=== PATIENT | male | born 1960 | race Caucasian/White ===

== ENCOUNTER 2019-06-04 14:38 | Inpatient (IN) | payer OTHER ==
[~2019-06-04] VITALS: Ht 175.3 cm; Wt 78.1 kg
[2019-06-04] MEDS ORDERED: NS 1,000 ML IV ONE ×2 (15:00→16:15)
[2019-06-04 15:21] LABS: VENOUS BASE EXCESS -7.1 (-2.0-2.0); VENOUS HCO3 19.5 MEQ/L (23.0-27.0); VENOUS PARTIAL PRESSURE CO2 42.8 mmHg (38.0-50.0); VENOUS PARTIAL PRESSURE O2 49.6 mmHg (30.0-50.0); VENOUS PH 7.276 UNITS (7.330-7.430); VENOUS STANDARD HCO3 18.4 MEQ/L; VENOUS TOTAL CO2 20.8 MEQ/L (24.0-28.0)
[2019-06-04] MEDS ORDERED: ONDANSETRON 4MG/2ML VIAL (J2405) As Ordered ONE (15:40)
[2019-06-04 15:45] LABS: OSMOLALITY SERUM 312 MOSM/KG (275-295)
[2019-06-04] MEDS ORDERED: ONDANSETRON 4MG/2ML VIAL (J2405) IV ONE (15:45)
--- NOTE | 2019-06-04 15:45 | REP ---
Clinical: Diabetic ketoacidosis . Comparison: None . Findings: The mediastinum and cardiac silhouette are stable and within normal limits for portable technique. The lung sanchez are clear without acute consolidation, effusion, or pneumothorax. Skeletal structures are intact. Impression: No acute cardiopulmonary process appreciated. Electronically Signed by Fernando Haynes MD 06/04/2019 03:37 P
[2019-06-04 15:50] LABS: ACETONE/KETONE > 46.00 MG/DL (<2.81); ALBUMIN 4.2 GM/DL (3.2-5.2); ALT/SGPT 26 U/L (12-78); BILIRUBIN,DIRECT 0.4 MG/DL (0.0-0.2); BILIRUBIN,TOTAL 1.2 MG/DL (0.2-1.0); BLOOD UREA NITROGEN 21 MG/DL (7-18); CALCIUM LEVEL 10.7 MG/DL (8.5-10.1); CARBON DIOXIDE LEVEL 22 MEQ/L (21-32); CHLORIDE LEVEL 93 MEQ/L (98-107); CK-MB VALUE MASS 3.9 NG/ML (<3.6); CPK CREATINE PHOSPHOKINASE 159 U/L (39-308); CREATININE FOR GFR 1.38 MG/DL (0.70-1.30); ETHYL ALCOHOL (ETHANOL) < 0.003 % (0.000-0.010); GLOMERULAR FILTRATION RATE 56.1 (>56); GLUCOSE, FASTING 486 MG/DL (70-100); LIPASE 37 U/L (73-393); MAGNESIUM LEVEL 2.1 MG/DL (1.8-2.4); MB/CK RELATIVE INDEX 2.45 (< OR =4); POTASSIUM SERUM 5.9 MEQ/L (3.5-5.1); SODIUM LEVEL 131 MEQ/L (136-145); TOTAL PROTEIN 7.5 GM/DL (6.4-8.2); TROPONIN I 0.17 NG/ML (< 0.10)
[2019-06-04 15:54] LABS: HEMOGLOBIN A1c 7.9 %
[2019-06-04] MEDS ORDERED: HumaLOG INSULIN (NovoLOG) PER UNIT SC STA (16:39)
[2019-06-04 17:09] LABS: VENOUS BASE EXCESS -9.2 (-2.0-2.0); VENOUS HCO3 17.1 MEQ/L (23.0-27.0); VENOUS O2 SATURATION 77.2 % (60.0-80.0); VENOUS PARTIAL PRESSURE CO2 38.5 mmHg (38.0-50.0); VENOUS PARTIAL PRESSURE O2 46.3 mmHg (30.0-50.0); VENOUS PH 7.265 UNITS (7.330-7.430); VENOUS STANDARD HCO3 16.8 MEQ/L; VENOUS TOTAL CO2 18.3 MEQ/L (24.0-28.0)
[2019-06-04] MEDS ORDERED: ISOVUE-370 76% 100ML VIAL (Q9967) As Ordered ONE (17:35)
[2019-06-04 17:45] LABS: CALCIUM LEVEL 10.2 MG/DL (8.5-10.1); CK-MB VALUE MASS 3.9 NG/ML (<3.6); CREATININE FOR GFR 1.37 MG/DL (0.70-1.30); GLOMERULAR FILTRATION RATE 56.6 (>56); MB/CK RELATIVE INDEX 2.45 (< OR =4); POTASSIUM SERUM 6.1 MEQ/L (3.5-5.1); TROPONIN I 0.16 NG/ML (< 0.10)
[2019-06-04] MEDS ORDERED: INSULIN IV RATE CHANGE DOCUMENTATION ML/HR XX SCH ×2 (18:30→23:45)
[2019-06-04] MEDS ORDERED: INSULIN HUMAN REGULAR 100 UNITS in NS 99 ML IV SCH ×2 (18:30→23:45)
[2019-06-04 18:40] LABS: BASO # 0.1 10^3/uL (0.0-0.2); BASO % 0.3 % (0.0-1.0); HEMATOCRIT 43.3 % (42.0-52.0); HEMOGLOBIN 14.6 g/dl (13.5-17.5); LYMPH # 0.4 10^3/uL (1.5-5.0); LYMPH % 2.8 % (24.0-44.0); MEAN CORPUSCULAR HGB CONC 33.7 g/dl (32.0-36.5); MEAN CORPUSCULAR VOLUME 85.9 fl (80.0-96.0); MONO # 0.4 10^3/uL (0.0-0.8); MONO % 2.4 % (0.0-5.0); NEUTROPHILS # 13.8 10^3/uL (1.5-8.5); NEUTROPHILS % 94.2 % (36.0-66.0); PLATELET COUNT, AUTOMATED 295 10^3/uL (150-450); RED BLOOD COUNT 5.04 10^6/uL (4.30-6.10); WHITE BLOOD COUNT 14.7 10^3/uL (4.0-10.0)
--- NOTE | 2019-06-04 18:54 | REPVR ---
EXAM: CT Angiography Chest With Contrast EXAM DATE/TIME: 06/04/2019 5:49 PM CLINICAL HISTORY: 59 years old, male; Chest pain; Additional info: Chest pain/ elevated troponin TECHNIQUE: Imaging protocol: Computed tomographic angiography of the chest with intravenous contrast. 3D rendering: MIP reconstructed images were created and reviewed. Radiation optimization: All CT scans at this facility use at least one of these dose optimization techniques: automated exposure control; mA and/or kV adjustment per patient size (includes targeted exams where dose is matched to clinical indication); or iterative reconstruction. Contrast material: ISOVUE 370; Contrast volume: 100 ml; Contrast route: IV; COMPARISON: CR PORTABLE CHEST X-RAY 06/04/2019 3:14 PM FINDINGS: Pulmonary arteries: There are very small pulmonary emboli on the left within infrahilar pulmonary arteries. There is mild atelectasis and infiltrate at the left lung base and just distal to the area of small emboli. This is probably related to small emboli. The lungs are otherwise clear. Aorta: Unremarkable. No aortic aneurysm. No aortic dissection. Thyroid: Normal thyroid. Pleural space: There is no evidence of pneumothorax or pleural effusion. Heart: The heart is normal in size and there is no evidence of pericardial effusion. Mediastinum: The small hiatal hernia. Liver: Normal liver. Lymph nodes: Unremarkable. No enlarged lymph nodes. Bones/joints: There are bridging anterior osteophytes of the thoracic spine. Soft tissues: Unremarkable. Other findings: Sternal wires are present. IMPRESSION: 1. Small pulmonary emboli in 2 of the infrahilar pulmonary arteries and associated with a small area of atelectasis infiltrate. 2. Small hiatal hernia. Electronically signed by: Micha Alfaro On 06/04/2019 18:54:20 PM
--- NOTE | 2019-06-04 19:04 | REPVR ---
EXAM: CT Abdomen and Pelvis With Contrast EXAM DATE/TIME: 06/04/2019 5:49 PM CLINICAL HISTORY: 59 years old, male; Vomiting TECHNIQUE: Imaging protocol: Computed tomography of the abdomen and pelvis with intravenous contrast. Radiation optimization: All CT scans at this facility use at least one of these dose optimization techniques: automated exposure control; mA and/or kV adjustment per patient size (includes targeted exams where dose is matched to clinical indication); or iterative reconstruction. Contrast material: ISOVUE 370; Contrast volume: 100 ml; Contrast route: IV; COMPARISON: No relevant prior studies available. FINDINGS: Mediastinum: Small hiatal hernia. Liver: There is severe fatty infiltration of the liver. Gallbladder and bile ducts: Normal gallbladder. Normal common bile duct. Pancreas: Normal appearing pancreas. Spleen: Normal spleen. Adrenals: Normal. No mass. Kidneys and ureters: There is enhancement of the kidneys. Stomach and bowel: Unremarkable. No obstruction. No mucosal thickening. Appendix: Normal-appearing appendix. Intraperitoneal space: There is no evidence of free fluid in the abdomen or pelvis. Vasculature: There is opacification of the aorta and appearing normal in size and intact. There is prominent calcification of the aorta consistent with atherosclerotic change. There is calcification of the celiac artery consistent with atherosclerotic change. There is opacification of the renal arteries. Lymph nodes: Unremarkable. No enlarged lymph nodes. Bladder: There is moderate distention of the urinary bladder. Reproductive: A normal sized prostate. Bones/joints: There is moderate posterior disc protrusion L4-L5 and L5-S1. Soft tissues: Unremarkable. IMPRESSION: 1. Moderate fatty infiltration of the liver. 2. Severe atherosclerotic change with calcification of the aorta and iliac arteries. 3. Small hiatal hernia. 4. Moderate distention of urinary bladder. Electronically signed by: Micha Alfaro On 06/04/2019 19:04:13 PM
[2019-06-04 20:40] LABS: INR 1.07; PROTHROMBIN TIME 13.6 SECONDS (11.8-14.0)
[2019-06-04 20:41] LABS: PARTIAL THROMBOPLASTIN TIME 29.2 SECONDS (25.0-38.4)
[2019-06-04] MEDS ORDERED: NS 1,000 ML IV SCH (21:00)
[2019-06-04] MEDS ORDERED: ESCITALOPRAM OXALATE 10 MG TAB (LEXAPRO) PO SCH (21:00)
[2019-06-04] MEDS ORDERED: ACETAMINOPHEN TAB 650MG DOSE (2X325MG) PO PRN (21:00)
[2019-06-04] MEDS ORDERED: ATORVASTATIN 20 MG TAB PO SCH (21:00)
[2019-06-04] MEDS ORDERED: ONDANSETRON 4MG/2ML VIAL (J2405) IV PRN (21:00)
[2019-06-04] MEDS ORDERED: APIXABAN 5 MG TAB (ELIQUIS) PO SCH (21:00)
[2019-06-04] MEDS ORDERED: OXcarbazepine 150 MG TAB PO SCH (21:00)
[2019-06-04] MEDS ORDERED: OXCA150T21 PO (21:01)
[2019-06-04] MEDS ORDERED: LISI-542 PO (21:01)
[2019-06-04] MEDS ORDERED: METO1TAB32 PO (21:01)
[2019-06-04] MEDS ORDERED: ASPI-161 PO (21:01)
[2019-06-04] MEDS ORDERED: INSUHUMDS SC (21:01)
[2019-06-04] MEDS ORDERED: ESCI20TA PO (21:01)
[2019-06-04] MEDS ORDERED: ATOR80TA59 PO (21:01)
--- NOTE | 2019-06-04 21:56 | HPEPDOC ---
[facility] Medical History & Physical Date of Admission Jun 04, 2019 Date of Service: Jun 04, 2019 Other Provider PCP is in [place] Attending Physician: LIZZIE GARCIA MD History and Physical PRIMARY CARE PROVIDER: In [place] ATTENDING: Dr. Lizzie Garcia CHIEF COMPLAINT: nausea/vomiting HISTORY OF PRESENT ILLNESS: Patient is a 59 year old male presenting with chief complaint of nausea/vomiting. Patient is a former [place] resident who occasionally comes up to visit family and arrived from [place] on 05/24. He states he had 4-5 episodes of emesis last night (06/03) after drinking too much alcohol. The nausea and vomiting continued this morning as he was unable to hold down any oral intake. Also sometime this morning he noted some intermittent right-sided chest pain that felt like heartburn. Because of his inability to tolerate oral intake he presented the [facility] emergency department where he was found to be in DKA. His history of chest pain was investigated as well and a CTA chest was performed showing 2 small pulmonary emboli. 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 It is uncl ear whether or not the patient understands how to attend to his diabetes when the self monitoring pump is removed (and it was since it had no salesperson flying squad). PAST MEDICAL HISTORY: Type 1 diabetes since age 15 Hyperlipidemia Depression MA in 2014 PAST SURGICAL HISTORY: Quadruple bypass in 2014 Finger surgery with metal sophia placement in early 20s SOCIAL HISTORY: Previous smoker of cigars who quit 3 years ago used to smoke one per day, generally drinks 2 cans of beer on weekends but does have episodes of binge drinking from time to time, no illicit drugs including marijuana, heroin, cocaine, PCP. Lives at home in [place] with his . Retired CPA. One dog in the home. FAMILY HISTORY: Fatheralive history of colorectal cancer with colostomy placement Mother from complications secondary to peripheral artery disease One sibling from suicide due to depression Other siblings with no health problems ALLERGIES: Please see below. REVIEW OF SYSTEMS: GENERAL: Denies fevers, chills, recent unexpected weight change, night sweats, hemoptysis HEENT: Denies headache, dizziness, vision changes, hearing loss, sore throat CARDIOVASCULAR: Denies palpitations, orthopnea. Admits to chest pain as per HPI. RESPIRATORY: Denies shortness of breath, wheezing, cough GASTROINTESTINAL: denies abdominal pain, constipation, diarrhea, bloody stool. Admits to nausea, vomiting as per HPI GENITOURINARY: Denies dysuria,urinary urgency, hematuria. MUSCULOSKELETAL: Denies muscle/joint pain, weakness, stiffness NEUROLOGICAL: Denies any numbness/tingling, focal weakness, or syncope HOME MEDICATIONS: Please see below. PHYSICAL EXAMINATION: Vitals: (see below) General: No acute distress, laying comfortably in bed. HEENT: Normocephalic, atraumatic. EOMI. No scleral icterus. Dry mucous membranes with blackened stain on his tongue. No pharyngeal erythema or uvular deviation. Neck: No JVD, lymphadenopathy, or thyromegaly. Cardiac: Tachycardia on auscultation, Normal S1 and S2, No murmurs, gallops, rubs. Pulm: Clear to auscultation b/l. Symmetric thorax. No wheezing, crackles, r honchi Abd: Bowel Sounds present. Abdomen is soft, non-tender, non-distended. No guarding, rebound tenderness, or rigidity. No hepatosplenomegaly. No masses or eccymosis. Ext: No edema or cyanosis Neuro: Alert and oriented, Strength +5/5 BUE and BLE. CN 3-12 grossly intact. LABORATORY DATA: See below. IMAGIN06/04/19 chest x-ray: No acute cardiopulmonary process appreciated. 06/04/19 abdomen/pelvis CT: 1. Moderate fatty infiltration of the liver. 2. Severe atherosclerotic change with calcification of the aorta and iliac arteries. 3. Small hiatal hernia. 4. Moderate distention of urinary bladder. 06/04/[address]: 1. Small pulmonary emboli in 2 of the infrahilar pulmonary arteries and associated with a small area of atelectasis infiltrate. 2. Small hiatal hernia. MICROBIOLOGY: Please see below. ASSESSMENT/PLAN: #. Diabetic ketoacidosis -Most likely cause of his DKA is secondary to his alcohol intoxication as well as his difficulties using his insulin pump, the lack of charge her for it, or possibly a malfunction with his insulin pump. This will need to be looked into by the day team to ensure that it is functioning properly as his primary care provider is not present in [place]. -In the emergency department he was given a bolus of insulin and started at a rate of 10 units per hour. He received 2 NS fluid boluses as part of his resuscitation as well. After I saw the patient, the nurse informed me that his latest fingerstick was 250 so we lowered the rate down to 2 units per hour. We will continue to do every hour fingersticks and monitor his electrolytes and anion gap every 4 hours. Once his glucose drops below 200 we will start the patient on D5 normal saline and once his gap closes after an hour we will transition him to subcutaneous insulin. -Patient on pantoprazole for GI prophylaxis, and getting zofran q4 hours for nausea. #. Hyperkalemia - Likely secondary to DKA, will continue to monitor for elevations with Q4 hour BMP's and correct with insulin. - Will hold home Lisinopril for now #. Pulmonary embolism -This may have been an incidental finding since they're relatively small clots in the periphery of his lungs. He does have a travel history or he was sitting for more than 2 hours on a flight, but right now this would appear to be unprovoked. We will get bilateral ultrasounds of his legs to make sure he didn't throw clot from them. -Starting patient on eliquis 10 mg twice daily for 7 days. #. Elevated creatinine -Likely secondary to dehydration and acidosis from DKA, will continue to give fluids and monitor for changes. - Holding nephrotoxic agents (lisinopril) #. Lactic Acidosis -Likely secondary to DKA, will continue to give IV fluid. So far initial work up is not showing anything concerning for infection. #. Leukocytosis - Likely reactive to acidosis and alcohol intoxication. #. Elevated troponin - Initial troponin elevated at 0.17 #. History of quadruple bypass -Continue lisinopril, metoprolol, baby aspirin, atorvastatin #. Depression -Continue escitalopram #. History of epilepsy -Continue oxcarbazepine #. Hyperlipidemia -Continue home atorvastatin -DVT prophy: Teds, eliquis, aspirin Vital Signs Vital Signs Date Time Temp Pulse Resp B/P (MAP) Pulse Ox O2 Delivery O2 Flow Rate FiO2 06/04/19 20:30 99.6 100 20 147/63 (91) 93 Room Air Laboratory Data Labs 24H Laboratory Tests 2 06/04/19 15:07: Immature Granulocyte % (Auto) 0.3, White Blood Count 14.7H, Red Blood Count 5.04, Hemoglobin 14.6, Hematocrit 43.3, Mean Corpuscular Volume 85.9, Mean Corpuscular Hemoglobin 29.0, Mean Corpuscular Hemoglobin Concent 33.7, Red Cell Distribution Width 13.8, Platelet Count 295, Neutrophils (%) (Auto) 94.2H, Lymphocytes (%) (Auto) 2.8L, Monocytes (%) (Auto) 2.4, Eosinophils (%) (Auto) 0.0, Basophils (%) (Auto) 0.3, Neutrophils # (Auto) 13.8H, Lymphocytes # (Auto) 0.4L, Monocytes # (Auto) 0.4, Eosinophils # (Auto) 0.0, Basophils # (Auto) 0.1, Nucleated Red Blood Cells % (auto) 0.0, Blood Gas Bicarbonate Standard 18.4, Venous Blood pH 7.276L, Venous Blood Partial Pressure CO2 42.8, Venous Blood Partial Pressure O2 49.6, Venous Blood Total Carbon Dioxide 20.8L, Venous Blood HCO3 19.5L, Venous Blood Oxygen Saturation 80.0, Venous Blood Base Excess -7.1L, Anion Gap 16, Glomerular Filtration Rate 56.1, Estimated Mean Plasma Glucose 180H, Hemoglobin A1c 7.9, Osmolality 312H, Lactic Acid Level 3.7*H, Calcium Level 10.7H, Magnesium Level 2.1, Aspartate Amino Transf (AST/SGOT) 19, Alanine Aminotransferase (ALT/SGPT) 26, Alkaline Phosphatase 88, Total Bilirubin 1.2H, Direct Bilirubin 0.4H, Total Creatine Kinase 159, Creatine Kinase MB 3.9H, Creatine Kinase MB Relative Index 2.45, Troponin I 0.17H, Total Protein 7.5, Albumin 4.2, Albumin/Globulin Ratio 1.27, Lipase 37L, Ethyl Alcohol Level < 0.003, B-Hydroxybutyrate > 46.00H 06/04/19 15:17: Bedside Glucose (Misc Panel) 497H 06/04/19 16:18: Bedside Glucose (Misc Panel) 501*H 06/04/19 16:20: Urine Color STRAW, Urine Appearance CLEAR, Urine pH 5.0, Urine Specific [place] 1.023, Urine Protein NEGATIVE, Urine Glucose (UA) 3+H, Urine Ketones 2+H, Urine Blood 1+H, Urine Nitrite NEGATIVE, Urine Bilirubin NEGATIVE, Urine Urobilinogen 0.2, Urine Leukocyte Esterase NEGATIVE, Urine WBC (Auto) 0, Urine RBC (Auto) 1, Urine Hyaline Casts (Auto) 0, Urine Bacteria (Auto) NEGATIVE, Urine Squamous Epithelial Cells 0, Urine Sperm (Auto) 06/04/19 17:03: Blood Gas Bicarbonate Standard 16.8, Venous Blood pH 7.265L, Venous Blood Partial Pressure CO2 38.5, Venous Blood Partial Pressure O2 46.3, Venous Blood Total Carbon Dioxide 18.3L, Venous Blood HCO3 17.1L, Venous Blood Oxygen Saturation 77.2, Venous Blood Base Excess -9.2L, Anion Gap 16, Glomerular Filtration Rate 56.6, Blood Urea Nitrogen 24H, Creatinine 1.37H, Sodium Level 132L, Potassium Level 6.1*H, Chloride Level 96L, Carbon Dioxide Level 20L, Calcium Level 10.2H, Total Creatine Kinase 159, Creatine Kinase MB 3.9H, Creatine Kinase MB Relative Index 2.45, Troponin I 0.16H 06/04/19 18:11: Bedside Glucose (Misc Panel) 423H 06/04/19 19:32: Bedside Glucose (Misc Panel) 308H 06/04/19 19:40: Lactic Acid Followup at 4 Hours 3.2*H 06/04/19 20:20: Prothrombin Time 13.6, Prothromb Time International Ratio 1.07, Activated Partial Thromboplast Time 29.2 06/04/19 20:42: Bedside Glucose (Misc Panel) 250H CBC/BMP Laboratory Tests 06/04/19 15:07 Red Blood Count 5.04, Mean Corpuscular Volume 85.9, Mean Corpuscular Hemoglobin 29.0, Mean Corpuscular Hemoglobin Concent 33.7, Red Cell Distribution Width 13.8, Neutrophils (%) (Auto) 94.2 H, Lymphocytes (%) (Auto) 2.8 L, Monocytes (%) (Auto) 2.4, Eosinophils (%) (Auto) 0.0, Basophils (%) (Auto) 0.3, Neutrophils # (Auto) 13.8 H, Lymphocytes # (Auto) 0.4 L, Monocytes # (Auto) 0.4, Eosinophils # (Auto) 0.0, Basophils # (Auto) 0.1 06/04/19 17:03 Calcium Level 10.2 H, Total Creatine Kinase 159 Home Medications Scheduled Aspirin (Aspirin EC) 81 Mg Tablet.dr, 81 MG PO DAILY Atorvastatin Calcium (Atorvastatin Calcium) 80 Mg Tablet, 80 MG PO QHS Clopidogrel Bisulfate (Plavix) 75 Mg Tablet, 1 TAB PO DAILY Enoxaparin Sodium (Lovenox) 80 Mg/0.8 Ml Syringe, 80 MG SC Q12H Escitalopram Oxalate (Escitalopram Oxalate) 20 Mg Tablet, 20 MG PO QHS Insulin Human Lispro (Humalog) 100 Unit/1 Ml Vial, 1 DOSE SC ASDIRECTED UP TO 50 UNITS DAILY VIA INSULIN PUMP Lisinopril (Lisinopril) 5 Mg Tablet, 5 MG PO DAILY Metoprolol Succinate (Metoprolol Succinate) 25 Mg Tab.er.24h, 25 MG PO DAILY Oxcarbazepine (Oxcarbazepine) 150 Mg Tablet, 150 MG PO BID Allergies Coded Allergies: No Known Drug Allergies (Verified Allergy, Unknown, 06/04/19) A-FIB/CHADSVASC A-FIB History Current/History of A-Fib/PAF?: No GME ATTESTATION GME ATTESTATION My faculty preceptor for this patient encounter was physically present during the encounter and was fully available. All aspects of the patient interview, examination, medical decision making process, and medical care plan development were reviewed and approved by the faculty preceptor. The faculty preceptor is aware and concurs with the plan as stated in the body of this note and will attest to such by his/her cosignature. JASKARAN PETE DO Jun 04, 2019 21:56
[2019-06-04] MEDS ORDERED: D5W/0.9% SODIUM CHLORIDE 1,000 ML IV SCH ×2 (22:00→23:45)
[2019-06-04 22:32] LABS: CK-MB VALUE MASS 6.9 NG/ML (<3.6); MB/CK RELATIVE INDEX 3.08 (< OR =4); TROPONIN I 0.68 NG/ML (< 0.10)
--- NOTE | 2019-06-04 22:51 | REPVR ---
EXAM: US Duplex Bilateral Lower Extremity Veins EXAM DATE/TIME: 06/04/2019 10:44 PM CLINICAL HISTORY: 59 years old, male; Abnormal findings; Abnormal imaging study of limbs; Chest; CT; Additional info: Pe in lungs TECHNIQUE: Imaging protocol: Real-time duplex ultrasound of the Bilateral Lower Extremities with 2-D carrera scale, color Doppler flow and spectral waveform analysis with image documentation. Complete exam focused on the bilateral lower extremity veins. COMPARISON: No relevant prior studies available. FINDINGS: Right deep veins: Unremarkable. The common femoral, femoral, proximal profunda femoral and popliteal veins are patent without thrombus. Normal Doppler waveforms. Normal compressibility and/or augmentation response. Right superficial veins: Saphenofemoral junction is patent without thrombus. Left deep veins: Unremarkable. The common femoral, femoral, proximal profunda femoral and popliteal veins are patent without thrombus. Normal Doppler waveforms. Normal compressibility and/or augmentation response. Left superficial veins: Saphenofemoral junction is patent without thrombus. Soft tissues: Unremarkable. IMPRESSION: No acute findings. No evidence of deep vein thrombosis. Electronically signed by: Micha Alfaro On 06/04/2019 22:51:23 PM
[2019-06-04 23:20] VITALS: BP 147/62
[2019-06-04 23:24] VITALS: BP 135/58
[2019-06-04 23:44] LABS: CREATININE FOR GFR 1.38 MG/DL (0.70-1.30); GLOMERULAR FILTRATION RATE 56.1 (>56); POTASSIUM SERUM 4.6 MEQ/L (3.5-5.1)
[2019-06-05] VITALS (7 sets, daily range): BP systolic 107–125; BP diastolic 52–60
--- NOTE | 2019-06-05 00:48 | ECGEPIP ---
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
--- NOTE | 2019-06-05 00:50 | ECGEPIP ---
[facility] - ED Test Date: 2019-06-04 Pat Name: ELLY MALONEY Department: Room: - Gender: Male Camp Head Counselor: sara : 1960 Requested By: MARCOS Echevarria Order Number: [id number] Reading MD: Marcos Conti Measurements Intervals [place] Rate: 101 P: 82 DE: 136 QRS: 85 QRSD: 94 T: 50 QT: 334 QTc: 433 Interpretive Statements SINUS TACHYCARDIA Nonspecific ST-T wave abnormalities Similar to tracing done 06-04-19 at 1454 Electronically Signed on 06-05-2019 0:50:16 EDT by Marcos Conti
[2019-06-05 01:44] LABS: CALCIUM LEVEL 8.8 MG/DL (8.5-10.1); CREATININE FOR GFR 1.31 MG/DL (0.70-1.30); GLOMERULAR FILTRATION RATE 59.6 (>56); POTASSIUM SERUM 4.7 MEQ/L (3.5-5.1)
[2019-06-05 02:51] LABS: CK-MB VALUE MASS 8.5 NG/ML (<3.6); MB/CK RELATIVE INDEX 3.08 (< OR =4); TROPONIN I 1.68 NG/ML (< 0.10)
[2019-06-05] MEDS ORDERED: CLOPIDOGREL 300 MG TAB (PLAVIX) PO STA (03:23)
[2019-06-05] MEDS ORDERED: DEXTROSE 50% 50 ML SYRINGE IV PRN (03:45)
[2019-06-05] MEDS ORDERED: NS 1,000 ML IV SCH (03:45)
[2019-06-05] MEDS ORDERED: GLUCAGON FOR INJ 1 MG VIAL (J1610) SC PRN (03:45)
[2019-06-05] MEDS ORDERED: GLUCOSE 4 GM CHEW TABLET PO PRN (03:45)
[2019-06-05] MEDS ORDERED: LEVEMIR (INSULIN DETEMIR) 1 UNITS/0.01ML SC ONE ×2 (03:45→04:30)
[2019-06-05] MEDS ORDERED: ASPIRIN 81 MG CHEW TABLET PO ONE (04:00)
[2019-06-05] MEDS ORDERED: LOVE0.6I2 SC (04:22)
[2019-06-05] MEDS ORDERED: PLAV1TAB2 PO (04:22)
--- NOTE | 2019-06-05 04:55 | DS.PDOC ---
Discharge Summary General Date of Admission Jun 04, 2019 at 20:12 Date of Discharge 06/05/19 Attending Physician: PIYUSH BRYANT MD Specialist/Consultants Involve: Marcos Warren Discharge Summary PROCEDURES PERFORMED DURING STAY: None. ADMITTING DIAGNOSES: Diabetic Ketoacidosis Pulmonary emboli Type 1 diabetes Depression Hyperlipidemia History of quadruple bypass in 2014 DISCHARGE DIAGNOSES: NSTEMI DKAresolved Pulmonary emboli Type 1 diabetes Depression Hyperlipidemia History of quadruple bypass in 2014 COMPLICATIONS/CHIEF COMPLAINT: Dka Pulmonary Embolism. HISTORY OF PRESENT ILLNESS: Patient is a 59 year old male presenting with chief complaint of nausea/vomiting. Patient is a former [place] resident who occasionally comes up to visit family and arrived from [place] on 05/24. He states he had 4-5 episodes of emesis last night (06/03) after drinking too much alcohol. The nausea and vomiting continued this morning as he was unable to hold down any oral intake. Also sometime this morning, he noted some intermittent right-sided chest pain that felt like heartburn. Because of his inability to tolerate oral intake he presented the [facility] emergency department where he was found to be in DKA. His history of chest pain was investigated as well and a CTA chest was performed showing 2 small infrahilar pulmonary emboli. Outside of his history of alcohol intoxication, he also states that he has a new device pump for his diabetes and that he left the communication signals intelligence for this in [place] and was only administering 1 unit of insulin based on self performed fingersticks. It is unclear whether or not the patient understands how to attend to his diabetes when the self monitoring pump is removed (and it was since it had no communication signals intelligence). HOSPITAL COURSE: Patient's DKA was not especially severe and his anion gap was closed by 21:47 on 06/04. He was having glucose readings below 200 regularly by about midnight at which time D5 normal saline was started. After an hour running the D5 normal saline with the insulin at the same rate, we transition to subcutaneous insulin and gave the patient 20 units of Levemir. Patient tolerated this well and experienced no nausea, vomiting or any complications outside of the elevated troponins. For his pulmonary emboli, he was given 10 mg of eliquis at 2308. While in the emergency department, he had troponins drawn at 1507 and at 1703 showing elevations of 0.17 and 0.16 respectively. EKGs performed at both of those times showed sinus tachycardia with no ST elevations or depressions. A six-hour follow-up at 2147 showed a troponin elevation of 0.68 and another performed 3 hours later demonstrated a troponin of 1.68. At that time and went down to the ICU and obtain a stat EKG that showed T-wave flattening in V2-V4 with no ST elevations or depressions. Our on-call electric furnace operator was then reached, Dr. Rea, who advised me that the patient would need a transfer for cardiac catheterization and in the meantime to start the patient on Plavix 300 mg followed by 75 mg daily. We also stopped the eliquis and started the patient on Lovenox 1 mg/kg and had the patient take a single 325 mg chewable aspirin. I spoke with Dr. Denton from [facility] who agreed to accept our transfer. The patient was kept informed throughout this entire process including during the most recent EKG, of the fact his troponins were elevated, that I was seeking cardiology consultation, and that he was being transferred for cardiac honorio terization. The patient verbalized understanding and agreement with the plan moving forward and had no questions. DISCHARGE MEDICATIONS: Please see below. ALLERGIES: Please see below. PHYSICAL EXAMINATION ON DISCHARGE: VITAL SIGNS: Please see below. GENERAL: Alert, in no acute distress, laying comfortably in bed HEENT: Normocephalic, atraumatic. EOMI. Mucous membranes moist. NECK: No JVD, lymphadenopathy, neck swelling. CARDIOVASCULAR EXAMINATION: RRR. Normal S1 and S2. No murmurs, gallops, rubs appreciated on auscultation. RESPIRATORY EXAMINATION: CTAB with full breath sounds bilaterally. No wheezes, crackles, rhonchi. ABDOMINAL EXAMINATION: Soft, nontender, nondistended. Bowel sounds present EXTREMITIES: No edema or cyanosis. SKIN: No rashes, skin mottling or skin changes appreciated. NEUROLOGICAL EXAMINATION: Alert, oriented. Cranial nerves 3-12 grossly intact. PSYCHIATRIC EXAMINATION: Mildly anxious. LABORATORY DATA: Please see below. IMAGIN06/04/19 chest x-ray: No acute cardiopulmonary process appreciated. 06/04/19 abdomen/pelvis CT: 1. Moderate fatty infiltration of the liver. 2. Severe atherosclerotic change with calcification of the aorta and iliac arteries. 3. Small hiatal hernia. 4. Moderate distention of urinary bladder. 06/04/[address]: 1. Small pulmonary emboli in 2 of the infrahilar pulmonary arteries and associated with a small area of atelectasis infiltrate. 2. Small hiatal hernia. PROGNOSIS: Fair ACTIVITY: [As tolerated]. DIET: Consistent carbohydrates DISCHARGE PLAN: Transfer to [facility] for cardiac catheterization DISCHARGE INSTRUCTIONS: 1. Transfer for cardiac catheterization 2. Make sure insulin pump is working correctly, may need to call hitch technician DISCHARGE CONDITION: [Stable]. TIME SPENT ON DISCHARGE: Greater than 30 minutes. Vital Signs/I&Os Vital Signs Date Time Temp Pulse Resp B/P (MAP) Pulse Ox O2 Delivery O2 Flow Rate FiO2 06/05/19 03:00 78 16 122/60 (80) 98 06/05/19 00:00 99.0 06/04/19 23:07 Room Air I&O- Last 24 Hours up to 6 AM 06/05/19 06:00 Intake Total 2020.2 ml Output Total 1000 ml Balance 1020.2 ml Laboratory Data Labs 24H Laboratory Tests 2 06/04/19 15:07: Immature Granulocyte % (Auto) 0.3, White Blood Count 14.7H, Red Blood Count 5.04, Hemoglobin 14.6, Hematocrit 43.3, Mean Corpuscular Volume 85.9, Mean Corpuscular Hemoglobin 29.0, Mean Corpuscular Hemoglobin Concent 33.7, Red Cell Distribution Width 13.8, Platelet Count 295, Neutrophils (%) (Auto) 94.2H, Lymphocytes (%) (Auto) 2.8L, Monocytes (%) (Auto) 2.4, Eosinophils (%) (Auto) 0.0, Basophils (%) (Auto) 0.3, Neutrophils # (Auto) 13.8H, Lymphocytes # (Auto) 0.4L, Monocytes # (Auto) 0.4, Eosinophils # (Auto) 0.0, Basophils # (Auto) 0.1, Nucleated Red Blood Cells % (auto) 0.0, Blood Gas Bicarbonate Standard 18.4, Venous Blood pH 7.276L, Venous Blood Partial Pressure CO2 42.8, Venous Blood Partial Pressure O2 49.6, Venous Blood Total Carbon Dioxide 20.8L, Venous Blood HCO3 19.5L, Venous Blood Oxygen Saturation 80.0, Venous Blood Base Excess -7.1L, Anion Gap 16, Glomerular Filtration Rate 56.1, Estimated Mean Plasma Glucose 180H, Hemoglobin A1c 7.9, Osmolality 312H, Lactic Acid Level 3.7*H, Calcium Level 10.7H, Magnesium Level 2.1, Aspartate Amino Transf (AST/SGOT) 19, Alanine Aminotransferase (ALT/SGPT) 26, Alkaline Phosphatase 88, Total Bilirubin 1.2H, Direct Bilirubin 0.4H, Total Creatine Kinase 159, Creatine Kinase MB 3.9H, Creatine Kinase MB Relative Index 2.45, Troponin I 0.17H, Total Protein 7.5, Albumin 4.2, Albumin/Globulin Ratio 1.27, Lipase 37L, Ethyl Alcohol Level < 0.003, B-Hydroxybutyrate > 46.00H 06/04/19 15:17: Bedside Glucose (Misc Panel) 497H 06/04/19 16:18: Bedside Glucose (Misc Panel) 501*H 06/04/19 16:20: Urine Color STRAW, Urine Appearance CLEAR, Urine pH 5.0, Urine Specific [place] 1.023, Urine Protein NEGATIVE, Urine Glucose (UA) 3+H, Urine Ketones 2+H, Urine Blood 1+H, Urine Nitrite NEGATIVE, Urine Bilirubin NEGATIVE, Urine Urobilinogen 0.2, Urine Leukocyte Esterase NEGATIVE, Urine WBC (Auto) 0, Urine RBC (Auto) 1, Urine Hyaline Casts (Auto) 0, Urine Bacteria (Auto) NEGATIVE, Urine Squamous Epithelial Cells 0, Urine Sperm (Auto) 06/04/19 17:03: Blood Gas Bicarbonate Standard 16.8, Venous Blood pH 7.265L, Venous Blood Partial Pressure CO2 38.5, Venous Blood Partial Pressure O2 46.3, Venous Blood Total Carbon Dioxide 18.3L, Venous Blood HCO3 17.1L, Venous Blood Oxygen Saturation 77.2, Venous Blood Base Excess -9.2L, Anion Gap 16, Glomerular Filtration Rate 56.6, Blood Urea Nitrogen 24H, Creatinine 1.37H, Sodium Level 132L, Potassium Level 6.1*H, Chloride Level 96L, Carbon Dioxide Level 20L, Calcium Level 10.2H, Total Creatine Kinase 159, Creatine Kinase MB 3.9H, Creatine Kinase MB Relative Index 2.45, Troponin I 0.16H 06/04/19 18:11: Bedside Glucose (Misc Panel) 423H 06/04/19 19:32: Bedside Glucose (Misc Panel) 308H 06/04/19 19:40: Lactic Acid Followup at 4 Hours 3.2*H 06/04/19 20:20: Prothrombin Time 13.6, Prothromb Time International Ratio 1.07, Activated Partial Thromboplast Time 29.2 06/04/19 20:42: Bedside Glucose (Misc Panel) 250H 06/04/19 21:46: Bedside Glucose (Misc Panel) 209H 06/04/19 21:47: Anion Gap 7L, Glomerular Filtration Rate 56.1, Blood Urea Nitrogen 24H, Creatinine 1.38H, Sodium Level 139#, Potassium Level 4.6#, Chloride Level 107, Carbon Dioxide Level 25, Calcium Level 9.0, Total Creatine Kinase 224, Creatine Kinase MB 6.9H, Creatine Kinase MB Relative Index 3.08, Troponin I 0.68#H 06/04/19 22:44: Bedside Glucose (Misc Panel) 215H 06/04/19 23:23: Bedside Glucose (Misc Panel) 195H 06/05/19 00:22: Bedside Glucose (Misc Panel) 195H 06/05/19 01:09: Anion Gap 6L, Glomerular Filtration Rate 59.6, Blood Urea Nitrogen 22H, Creatinine 1.31H, Sodium Level 139, Potassium Level 4.7, Chloride Level 106, Carbon Dioxide Level 27, Calcium Level 8.8, Total Creatine Kinase 276, Creatine Kinase MB 8.5H, Creatine Kinase MB Relative Index 3.08, Troponin I 1.68#*H 06/05/19 01:46: Bedside Glucose (Misc Panel) 198H 06/05/19 03:07: Bedside Glucose (Misc Panel) 177H CBC/BMP Laboratory Tests 06/04/19 15:07 Red Blood Count 5.04, Mean Corpuscular Volume 85.9, Mean Corpuscular Hemoglobin 29.0, Mean Corpuscular Hemoglobin Concent 33.7, Red Cell Distribution Width 13.8, Neutrophils (%) (Auto) 94.2 H, Lymphocytes (%) (Auto) 2.8 L, Monocytes (%) (Auto) 2.4, Eosinophils (%) (Auto) 0.0, Basophils (%) (Auto) 0.3, Neutrophils # (Auto) 13.8 H, Lymphocytes # (Auto) 0.4 L, Monocytes # (Auto) 0.4, Eosinophils # (Auto) 0.0, Basophils # (Auto) 0.1 06/04/19 17:03 Calcium Level 10.2 H, Total Creatine Kinase 159 06/04/19 21:47 Calcium Level 9.0, Total Creatine Kinase 224 06/05/19 01:09 Calcium Level 8.8, Total Creatine Kinase 276 FSBS Laboratory Tests Test 06/04/19 15:17 06/04/19 16:18 06/04/19 18:11 06/04/19 19:32 Range/Units Bedside Glucose (Misc Panel) 497 501 423 308 70-105 MG/DL Test 06/04/19 20:42 06/04/19 21:46 06/04/19 22:44 06/04/19 23:23 Range/Units Bedside Glucose (Misc Panel) 250 209 215 195 70-105 MG/DL Test 06/05/19 00:22 06/05/19 01:46 06/05/19 03:07 Range/Units Bedside Glucose (Misc Panel) 195 198 177 70-105 MG/DL Discharge Medications Scheduled Aspirin (Aspirin EC) 81 Mg Tablet.dr, 81 MG PO DAILY, (Reported) Atorvastatin Calcium (Atorvastatin Calcium) 80 Mg Tablet, 80 MG PO QHS, (Reported) Clopidogrel Bisulfate (Plavix) 75 Mg Tablet, 1 TAB PO DAILY Enoxaparin Sodium (Lovenox) 80 Mg/0.8 Ml Syringe, 80 MG SC Q12H Escitalopram Oxalate (Escitalopram Oxalate) 20 Mg Tablet, 20 MG PO QHS, (Reported) Insulin Human Lispro (Humalog) 100 Unit/1 Ml Vial, 1 DOSE SC ASDIRECTED, (Reported) UP TO 50 UNITS DAILY VIA INSULIN PUMP Lisinopril (Lisinopril) 5 Mg Tablet, 5 MG PO DAILY, (Reported) Metoprolol Succinate (Metoprolol Succinate) 25 Mg Tab.er.24h, 25 MG PO DAILY, (R eported) Oxcarbazepine (Oxcarbazepine) 150 Mg Tablet, 150 MG PO BID, (Reported) Allergies Coded Allergies: No Known Drug Allergies (Verified Allergy, Unknown, 06/04/19) GME ATTESTATION GME ATTESTATION My faculty preceptor for this patient encounter was physically present during the encounter and was fully available. All aspects of the patient interview, examination, medical decision making process, and medical care plan development were reviewed and approved by the faculty preceptor. The faculty preceptor is aware and concurs with the plan as stated in the body of this note and will att est to such by his/her cosignature. JASKARAN PETE DO Jun 05, 2019 04:55
[2019-06-05] MEDS ORDERED: ENOXAPARIN 80 MG/0.8 ML SYRINGE (J1650) SC SCH (06:00)
[2019-06-05] MEDS ORDERED: PANTOPRAZOLE 40MG INJ (PROTONIX) (C9113) IV SCH (06:00)
[2019-06-05] MEDS ORDERED: HumaLOG INSULIN (NovoLOG) PER UNIT SC SCH ×2 (07:30→21:00)
[2019-06-05] MEDS ORDERED: METOPROLOL SUCC *XL* 25MG TAB (TopROL *XL*) PO SCH (09:00)
[2019-06-05] MEDS ORDERED: ASPIRIN 81 MG CHEW TABLET PO SCH (09:00)
[2019-06-05] MEDS ORDERED: LISINOPRIL 5 MG TAB PO SCH (09:00)
--- NOTE | 2019-06-06 17:02 | ECGEPIP ---
[facility] Test Date: 2019-06-05 Pat Name: ELLY MALONEY Department: Room: [place] [address] Gender: Male Fowl Blood Tester: CADY : 1960 Requested By: JASKARAN PETE Order Number: [id number] Reading MD: Marcos Warren Measurements Intervals [place] Rate: 82 P: 79 ID: [id number] QRS: 52 QRSD: 92 T: 73 QT: 380 QTc: 446 Interpretive Statements SINUS RHYTHM POSSIBLE LEFT ATRIAL ENLARGEMENT NONSPECIFIC ST & T-WAVE ABNORMALITY Electronically Signed on 06-06-2019 17:02:31 EDT by Marcos Warren
[2019-06-11] MEDS ORDERED: APIXABAN 5 MG TAB (ELIQUIS) PO SCH (21:00)
== END 2019-06-05 05:25 | disposition short-term general hospital (02) | DRG 280 ==
LOC: M ED 14:38 → M ED INP 20:12 → M ICU 23:15
PROVIDERS: ADMIT Internal Medicine Nephrology; ATTEND Internal Medicine Nephrology
DX: I21.4 Non-ST elevation (NSTEMI) myocardial infarction (principal); E10.10 Type 1 diabetes mellitus with ketoacidosis without coma; I26.99 Other pulmonary embolism without acute cor pulmonale; F32.9 Major depressive disorder, single episode, unspecified; E78.5 Hyperlipidemia, unspecified; Z95.1 Presence of aortocoronary bypass graft; K44.9 Diaphragmatic hernia without obstruction or gangrene; Z79.82 Long term (current) use of aspirin; Z79.899 Other long term (current) drug therapy; Z79.4 Long term (current) use of insulin; D72.829 Elevated white blood cell count, unspecified; E87.5 Hyperkalemia